=== PATIENT | female | born 1990 | race Caucasian/White ===

== ENCOUNTER 2020-12-01 14:19 | Emergency (ER) | payer SELFPAY ==
[~2020-12-01] VITALS: Ht 162.6 cm; Wt 80.0 kg
--- NOTE | 2020-12-01 14:37 | NUR ---
SOLAR INSTALLATION TECHNICIAN: CALL PLACED TO [facility], R/T NO REPORT RECEIVED ABOUT PT. SPOKE TO GALINA. PT HAD PRESENTED TO [facility], WITH SI, PT SENT TO [facility] FOR MEDICAL CLEARANCE. PT WAS TRANSPORTED BACK TO [facility]. PER GALINA PT WAS IN INTAKE AND BEGAN SAYING SHE WAS HAVING ABD PAIN AND HAS HAD HIGH RISK PREGANCIES. UNKNOWN LMP. [facility] DOCTORS REQUESTED SHE BE RE-EVAL AND MEDICALLY CLEARED AGAIN. PER GALINA PT WILL BE ACCEPTED BACK AT [facility] UPON MEDICAL CLEARANCE.
--- NOTE | 2020-12-01 14:40 | NUR ---
PT AMBULATED TO RESTROOM WITH STEADY GAIT TO PROVIDE URINE SAMPLE.
--- NOTE | 2020-12-01 14:42 | NUR ---
ANDREY KNUTSON FROM [facility] FOR ABD PAIN. PER PAPERWORK, PT ON LEGAL HOLD, SITTER NOT PROVIDED FROM [facility]. SITTER REQUESTED. PT CONNECTED TO MONITORING. CALL LIGHT IN REACH.
--- NOTE | 2020-12-01 15:06 | NUR ---
AT BEDSIDE TO ASSESS PT.
--- NOTE | 2020-12-01 15:13 | NUR ---
PT IN DIRECT SIGHT OF SITTER.
--- NOTE | 2020-12-01 15:25 | NUR ---
UA COLLECTED AND SENT TO LAB.
[2020-12-01 15:32] LABS: MICROSCOPIC AUTO
--- NOTE | 2020-12-01 16:16 | NUR ---
PT READY FOR DC. PER GALINA AT [facility], PT TO RETURN VIA [facility]. THROUGHTPUT RN NOTIFIED.
--- NOTE | 2020-12-01 17:00 | NUR ---
PT RESTING ON GURNEY. RESP EVEN AND UNLABORED. PT IN DIRECT SIGHT OF SITTER.
[2020-12-01 18:01] VITALS: BP 123/78
--- NOTE | 2020-12-01 18:02 | NUR ---
PT RESTING ON GURNEY. RESP EVEN AND UNLABORED. PT IN DIRECT SIGHT OF SITTER.
--- NOTE | 2020-12-01 19:07 | NUR ---
REPORT GIVEN TO [facility] FOR TRANSPORT TO LOCATED WITHIN [facility].
== END 2020-12-01 19:15 ==
LOC: ED 14:49
DX: O23.11 Infections of bladder in pregnancy, first trimester (principal); R10.32 Left lower quadrant pain; Z3A.21 21 weeks gestation of pregnancy
CPT/HCPCS: 76815; 81001; 87086; 99285

== ENCOUNTER → 2021-02-03 | Outpatient (CLI) | payer OTHER | END | disposition home or self-care (01) | LOC: CVU 11:41 | PROVIDERS: ATTEND Internal Medicine Cardiovascular Disease | DX: I37.1 Nonrheumatic pulmonary valve insufficiency (principal); I50.9 Heart failure, unspecified; Z87.891 Personal history of nicotine dependence | CPT/HCPCS: 93306; 93356 ==